=== PATIENT | male | born 1960 ===

== ENCOUNTER 2020-06-14 20:05 | Emergency (ER) | payer SELFPAY ==
--- NOTE | 2020-06-14 20:52 | EDM.PDOC ---
ED HPI GENERAL MEDICAL PROBLEM - General Chief Complaint: Cardiovascular Problem Time Seen by Provider: 06/14/20 20:50 Source of Information: Reports: Patient History Limitations: Reports: No Limitations - History of Present Illness INITIAL COMMENTS - FREE TEXT/NARRATIVE: states was Dx with covid 2 weeks ago and just finished self quarantine and started having SOB and cough. denies fever. non smoker but noticed his O2 sat at home was only in 80s. so call EMS. right now feels better with O2. - Related Data Allergies Allergy/AdvReac Type Severity Reaction Status Date / Time No Known Allergies Allergy Verified 06/14/20 20:19 Home Meds: Home Meds . [Unable to Verify Home Med List] 06/14/20 [History] Past Medical History HEENT History: Reports: Impaired Vision Cardiovascular History: Reports: Hypertension Respiratory History: Reports: Bronchitis, Recurrent Endocrine/Metabolic History: Reports: Diabetes, Type II Social & Family History - Tobacco Use Smoking Status *Q: Never Smoker Second Hand Smoke Exposure: No - Caffeine Use Caffeine Use: Reports: Coffee - Recreational Drug Use Recreational Drug Use: No ED ROS GENERAL - Review of Systems Review Of Systems: Comprehensive ROS is negative, except as noted in HPI. ED EXAM, GENERAL - Physical Exam Exam: See Below Exam Limited By: No Limitations General Appearance: Alert, WD/WN, Anxious, Mild Distress Ears: Hearing Grossly Normal Throat/Mouth: Normal Voice, No Airway Compromise Head: Atraumatic Neck: Non-Tender, Full Range of Motion Respiratory/Chest: No Respiratory Distress Cardiovascular: Regular Rate, Rhythm GI/Abdominal: Soft, Non-Tender (Male) Exam: Deferred Rectal (Males) Exam: Deferred Neurological: Alert, Oriented, Normal Cognition, Normal Gait, No Motor/Sensory Deficits Psychiatric: Anxious Skin Exam: Warm, Dry, Normal Color Lymphatic: No Adenopathy Course - Vital Signs Last Recorded V/S: Last Vital Signs Temp 37.6 C 06/14/20 20:13 Pulse 117 H 06/14/20 20:13 Resp 20 06/14/20 20:13 BP 156/78 H 06/14/20 20:13 Pulse Ox 90 L 06/14/20 20:13 - Orders/Labs/Meds Orders: Active Orders 24 hr Category Date Time Status EKG 12 Lead [EKG Documentation Completion] [RC] STAT Care 06/14/20 20:23 Active CULTURE BLOOD [BC] Stat Lab 06/14/20 20:45 Received Enoxaparin [Lovenox] Med 06/14/20 23:11 Once 40 mg SUBCUT ONETIME ONE dexAMETHasone [Dexamethasone] Med 06/14/20 23:11 Once 6 mg IVPUSH ONETIME ONE Labs: Laboratory Tests 06/14/20 06/14/20 06/14/20 Range/Units 20:45 20:45 20:45 WBC 8.8 (5.0-10.0) 10^3/uL RBC 4.82 (4.6-6.2) 10^6/uL Hgb 13.2 L (14.0-18.0) g/dL Hct 39.9 L (40.0-54.0) % MCV 82.8 (80-100) fL MCH 27.4 (27.0-34.0) pg MCHC 33.1 (33.0-35.0) g/dL Plt Count 284 (150-450) 10^3/uL Neut % (Auto) 78.2 H (42.2-75.2) % Lymph % (Auto) 13.0 L (20.5-50.1) % [place] % (Auto) 8.7 H (2-8) % Eos % (Auto) 0.0 L (1.0-3.0) % Baso % (Auto) 0.1 (0.0-1.0) % D-Dimer, Quantitative 819 H (0-400) ng/mL Sodium 138 (136-145) mmol/L Potassium 4.3 (3.5-5.1) mmol/L Chloride 102 (98-107) mmol/L Carbon Dioxide 27 (21-32) mmol/L Anion Gap 13.3 H (7-13) mEq/L BUN 19 H (7-18) mg/dL Creatinine 0.96 (0.70-1.30) mg/dL Est Cr Clr Drug Dosing 88.24 mL/min Estimated GFR (MDRD) > 60 BUN/Creatinine Ratio 19.8 (No establ ref range) Glucose 100 H (74-99) mg/dL Lactic Acid (0.4-2.0) mmol/L Calcium 7.9 L (8.5-10.1) mg/dL Total Bilirubin 0.5 (0.2-1.0) mg/dL AST 44 H (15-37) U/L ALT 85 H (16-63) U/L Alkaline Phosphatase 57 (46-116) U/L Troponin I < 0.017 (0.000-0.056) ng/mL Total Protein 7.2 (6.4-8.2) g/dL Albumin 2.5 L (3.4-5.0) g/dL Globulin 4.7 Albumin/Globulin Ratio 0.53 09/18/20 Range/Units 20:45 WBC (5.0-10.0) 10^3/uL RBC (4.6-6.2) 10^6/uL Hgb (14.0-18.0) g/dL Hct (40.0-54.0) % MCV (80-100) fL MCH (27.0-34.0) pg MCHC (33.0-35.0) g/dL Plt Count (150-450) 10^3/uL Neut % (Auto) (42.2-75.2) % Lymph % (Auto) (20.5-50.1) % [place] % (Auto) (2-8) % Eos % (Auto) (1.0-3.0) % Baso % (Auto) (0.0-1.0) % D-Dimer, Quantitative (0-400) ng/mL Sodium (136-145) mmol/L Potassium (3.5-5.1) mmol/L Chloride (98-107) mmol/L Carbon Dioxide (21-32) mmol/L Anion Gap (7-13) mEq/L BUN (7-18) mg/dL Creatinine (0.70-1.30) mg/dL Est Cr Clr Drug Dosing mL/min Estimated GFR (MDRD) BUN/Creatinine Ratio (No establ ref range) Glucose (74-99) mg/dL Lactic Acid 1.3 (0.4-2.0) mmol/L Calcium (8.5-10.1) mg/dL Total Bilirubin (0.2-1.0) mg/dL AST (15-37) U/L ALT (16-63) U/L Alkaline Phosphatase (46-116) U/L Troponin I (0.000-0.056) ng/mL Total Protein (6.4-8.2) g/dL Albumin (3.4-5.0) g/dL Globulin Albumin/Globulin Ratio - Re-Assessments/Exams Free Text/Narrative Re-Assessment/Exam: 06/14/20 23:[address] Guerrero @ [facility] kindly accepted pt. Departure - Departure Time of Disposition: 23:13 Disposition: DC/Tfer to [facility] 02 Reason for Transfer *Q: Other Condition: Fair Clinical Impression: Pneumonia due to COVID-19 virus, Hypoxemia Forms: Interfacility Transfer EMTALA Sepsis Event Note (ED) - Evaluation Sepsis Screening Result: No Definite Risk - Focused Exam Vital Signs: Vital Signs Temp Pulse Resp BP Pulse Ox 06/14/20 20:13 37.6 C 117 H 20 156/78 H 90 L - My Orders Last 24 Hours: My Active Orders 06/14/20 20:23 EKG 12 Lead [EKG Documentation Completion] [RC] STAT 06/14/20 20:45 CULTURE BLOOD [BC] Stat 06/14/20 23:11 Enoxaparin [Lovenox] 40 mg SUBCUT ONETIME ONE dexAMETHasone [Dexamethasone] 6 mg IVPUSH ONETIME ONE - Assessment/Plan Last 24 Hours: My Active Orders 06/14/20 20:23 EKG 12 Lead [EKG Documentation Completion] [RC] STAT 06/14/20 20:45 CULTURE BLOOD [BC] Stat 06/14/20 23:11 Enoxaparin [Lovenox] 40 mg SUBCUT ONETIME ONE dexAMETHasone [Dexamethasone] 6 mg IVPUSH ONETIME ONE
[2020-06-14 21:14] LABS: ANION GAP 13.3 mEq/L (7-13); CHLORIDE,CL 102 mmol/L (98-107); SODIUM,NA 138 mmol/L (136-145)
--- NOTE | 2020-06-14 22:10 | CT ---
PROCEDURE INFORMATION: Exam: CT Chest Without Contrast Exam date and time: 06/14/2020 9:48 PM Age: 59 years old Clinical indication: Shortness of breath; Additional info: Covid high d dimer, SOB low o2 sat TECHNIQUE: Imaging protocol: Computed tomography of the chest without contrast. Radiation optimization: All CT scans at this facility use at least one of these dose optimization techniques: automated exposure control; mA and/or kV adjustment per patient size (includes targeted exams where dose is matched to clinical indication); or iterative reconstruction. COMPARISON: No relevant prior studies available. FINDINGS: Lungs: There are patchy irregular ground-glass opacities present predominately in a peripheral distribution within the hemithoraces bilaterally, findings compatible with a bilateral pneumonitis. Pleural space: Unremarkable. No pneumothorax. No pleural effusion. Heart: Unremarkable. No cardiomegaly. No pericardial effusion. Aorta: Unremarkable. No aortic aneurysm. Lymph nodes: Unremarkable. No enlarged lymph nodes. Bones/joints: Unremarkable. No acute fracture. Soft tissues: Unremarkable. IMPRESSION: Patchy irregular ground-glass opacities predominantly in a peripheral distribution within the hemithoraces bilaterally, findings that are compatible with bilateral pneumonitis. Imaging features can be seen with COVID-19 pneumonia, though are nonspecific and can occur with a variety of infectious and noninfectious processes. REFERENCES: Eyad Arguelles, et al., [employer] of [place] Expert Consensus Statement on Reporting Chest CT Findings Related to COVID-19. Endorsed by the Society of [employer], the [place] [employer], and [employer]. Published December 20, 2019.
[2020-06-14] MEDS ORDERED: Dexamethasone 4 MG/ML SDV IVPUSH ONE (23:11)
[2020-06-14] MEDS ORDERED: Enoxaparin 40 MG/0.4 ML Syringe SUBCUT ONE (23:11)
== END 2020-06-15 00:05 ==
LOC: DL.ED 20:05
DX: U07.1 COVID-19 (principal); J12.89 Other viral pneumonia; R09.02 Hypoxemia; E11.9 Type 2 diabetes mellitus without complications; I10 Essential (primary) hypertension
CPT/HCPCS: 36415; 71250; 80053; 83605; 84484; 85025; 85379; 87040; 93005; 96372; 96374; 99284; 99285-25; J1100; J1650

== ENCOUNTER 2022-10-30 07:00 | Day surgery (SDC) | payer OTHER ==
[~2022-10-30 07:00] MED LIST: Dextrose 5%-0.45% NaCl 1,000 ML IV SCH; Midazolam 1 MG/ML 2 ML SDV ONE; Sodium Chloride 0.9% 10 ML Syringe FLUSH PRN; Sodium Chloride 0.9% 10 ML Syringe FLUSH SCH; fentaNYL 100 MCG/2 ML SDV ONE
[2022-10-30] MEDS ORDERED: fentaNYL 100 MCG/2 ML SDV IV ONE ×4 (07:01→07:48)
[2022-10-30] MEDS ORDERED: Midazolam 1 MG/ML 2 ML SDV IV ONE ×7 (07:01→07:45)
== END 2022-10-30 09:08 | disposition home or self-care (01) ==
LOC: DL.ENDO 07:00
PROVIDERS: ATTEND Internal Medicine Gastroenterology
DX: Z12.11 Encounter for screening for malignant neoplasm of colon (principal); D12.4 Benign neoplasm of descending colon; D12.5 Benign neoplasm of sigmoid colon; I10 Essential (primary) hypertension; E78.5 Hyperlipidemia, unspecified; E66.09 Other obesity due to excess calories; E11.9 Type 2 diabetes mellitus without complications; Z20.822 Contact with and (suspected) exposure to COVID-19; Z68.30 Body mass index [BMI] 30.0-30.9, adult
CPT/HCPCS: 45385; J2250; J3010; J7042